=== PATIENT | female | born 1975 | race Caucasian/White ===

== ENCOUNTER 2020-02-22 12:31 | Outpatient (CLI) | payer BC, SELFPAY ==
--- NOTE | ~2020-02-22 | XR_ITS ---
XR knee RT min 4V DATE: 02/22/2020 12:56 INDICATION: Inferopatellar pain. No injury. TECHNIQUE: 4 views COMPARISON: None FINDINGS: There is mild to moderate osteoarthritis at the medial compartment, with mild loss of joint space height, mild periarticular spurring of the tibia. There is slight periarticular spurring at th e lateral compartment. No fracture or dislocation or joint effusion. No periosteal reaction or bone destruction. No radiopaq ue intra-articular loose body or chondrocalcinosis. IMPRESSION: Osteoarthritis Reviewed, dictated and finalized at location B. IMPRESSION: Osteoarthritis
== END 2020-02-22 12:32 | disposition home or self-care (01) ==
PROVIDERS: PCP Internal Medicine; Visit Provider Internal Medicine
DX: M25.569 Pain in unspecified knee (principal); M17.11 Unilateral primary osteoarthritis, right knee
CPT/HCPCS: 73564

== ENCOUNTER 2020-06-28 17:41 | Outpatient (CLI) | payer BC, SELFPAY ==
[2020-06-28 18:10] LABS: Alanine Aminotransferase 22 U/L (4-35); Albumin Level 4.4 g/dL (3.5-5.1); Alkaline Phosphatase 100 U/L (38-126); Anion Gap 10 mmol/L (8-16); Aspartate Amino Transferase 27 U/L (14-36); Bilirubin,Total 0.6 mg/dL (0.2-1.3); Blood Urea Nitrogen 17 mg/dL (7-17); Calcium 9.8 mg/dL (8.4-10.2); Carbon Dioxide 24 mmol/L (22-30); Chloride 102 mmol/L (98-107); Estimated Glomerular Filt Rate > 60; Glucose 110 mg/dL (65-105); Potassium 4.6 mmol/L (3.4-5.0); Sodium 136 mmol/L (137-145)
[2020-06-28 18:19] LABS: NT Pro B Type Natriuretic Pept 40 PG/ML (5-100)
[2020-06-28 18:46] LABS: Iron 71 ug/dL (37-170)
[2020-06-28 19:02] LABS: Hematocrit 40.6 % (37.0-47.0); Hemoglobin 13.8 g/dL (12.0-15.0); Mean Corpuscular Hemoglobin 33.7 pg (26-34); Mean Corpuscular Volume 99.3 fl (80-100); Mean Platelet Volume 10.6 fl (7.4-10.4); Platelet Count Result 336 k/mm3 (150-375); Red Blood Count 4.09 M/mm3 (4.2-5.4); Red Cell Distribution Width 13.2 % (11.5-14.5); White Blood Count 15.5 K/mm3 (4.5-10.0)
[2020-06-28 19:04] LABS: Percent Iron Saturation 16 % (20-50)
== END 2020-06-28 17:42 | disposition home or self-care (01) ==
LOC: ANHLAB 17:43
PROVIDERS: PCP Internal Medicine; Visit Provider Internal Medicine Cardiovascular Disease
DX: D50.0 Iron deficiency anemia secondary to blood loss (chronic) (principal); I50.32 Chronic diastolic (congestive) heart failure; Z86.79 Personal history of other diseases of the circulatory system
CPT/HCPCS: 36415; 80053; 83540; 83550; 83880; 84443; 85027

== ENCOUNTER 2020-07-26 00:12 | Outpatient (CLI) | payer BC, SELFPAY ==
[2020-07-27 16:05] LABS: SARS-CoV-2 RNA PCR Negative
== END 2020-07-26 00:13 | disposition home or self-care (01) ==
LOC: ANHCOVIDDT 00:12
PROVIDERS: PCP Internal Medicine; Visit Provider Internal Medicine Critical Care Medicine
DX: R68.89 Other general symptoms and signs (principal); Z20.828 Contact with and (suspected) exposure to other viral communicable diseases
CPT/HCPCS: 87635; C9803; U0003

== ENCOUNTER 2020-07-28 08:11 | Outpatient (CLI) | payer BC, SELFPAY ==
--- NOTE | 2020-09-13 10:58 | WPDSLEEPSTUD ---
Sleep Study Date of Study: 07/28/20 Ordering Provider: Nichole Maier MD; Lavell Dhaliwal MD is primary care physicain Interpreting Physician: Nichole Maier MD Sleep Study Type: BiPAP Titration Height: 1.7 m Weight: 161.479 kg Body Mass Index: 55.7 Neck Circumference: 40.64 cm [place]: 12 Reason for Sleep Study Nocturnal polysomnogram on 03/15/2020 at [facility] with an AHI 18.9 and a minimum saturation 91% Sleep History Aide Quintana is a 45 year old female with a complex medical history. Her baseline NPSG showed moderate obstructive sleep apnea, and she is here for a titration. 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 She had severe CHF, large amount of fluid retention, was not able to return to normal activity. She was followed by [facility], now is seen by [facility]. She has had 2 sleep studies in the past. She was started on APAP which did not help her, and she was never able to tolerate it. She is really frustrated because she ended up paying for a CPAP machine and really was not even able to benefit. This started back around 2018. She has had poor sleep since childhood, worse over the last 10 years. She chokes and coughs while sleeping. She has fatigue, nightmares, and falls asleep easily during the day. Her boyfriend notes that she sleep talks if she is extremely tired before sleep. She snores loudly, has a dry mouth at night, keeps water by the bed. Her sleep schedule is not a set routine; she has a variable bedtime but she uses amitriptyline to help her fall asleep and she normally is going to sleep around 9:30 p.m. Sometime she does not fall asleep as quickly as she would like. She tosses and turns at night, has body pains during sleep associated with fibromyalgia. She wakes to go to the bathroom. She wakes in the am between 6:00 & 7:00 a.m. not feeling refreshed. She urinates on average 3 times at night. She lives with her 80-year-old parents who are not in good health and she sleeps very lightly, waking at night to help them if they need anything. She takes ropinirole for limb movements and restless leg symptoms, and this helps significantly. She has fibromyalgia, chronic pain and her activity is limited during the daytime. She is on immunotherapy for allergies, currently back to having 1 injection per week. She had her tonsils removed March 22, 2020 for recurrent infections. She does not have vivid dreamlike scenes upon waking or falling asleep. She does not fall asleep involuntarily during the day. She says her sleep overall has been poor since the age of 7. She has muscle spasms that wake her up at night. At times her muscle cramps of caused her to jerk at night and this is looks like seizure activity. She tries to avoid naps but after 3 or 4 nights of poor sleep sometimes she will take a nap lasting anywhere from an hour to 5 hours. She does not feel good after taking a nap obviously. She has had episodes of choking at night witnessed by others. She sleeps better in her adjustable bed, cannot sleep supine. She uses several pillows to help sleep. She does not sleep supine at all. She has sinus issues, this is worse with weather changes. she sometimes takes naps. A short nap is not refreshing. She is drowsy in the morning for 1 hour. She constantly sweats excessively at night. She frequently notices irregular heartbeat at night. She occasionally falls asleep during the day, occasionally involuntarily but denies falling asleep while driving the car. She does not fall asleep during physical effort. She does not have loss of muscle tone with strong emotion. She occasionally has daytime difficulties due to excessive sleepiness. She does not feel paralyzed on waking or falling asleep. She frequently has vivid dreamlike scenes both upon awakening or falling asleep. She is frequently fearful of falling as
[2020-09-13 11:32] VITALS: BMI 55.7
== END 2020-07-28 08:12 | disposition home or self-care (01) ==
LOC: ANHCSM 08:12
PROVIDERS: PCP Internal Medicine; Visit Provider Internal Medicine Critical Care Medicine
DX: G47.33 Obstructive sleep apnea (adult) (pediatric) (principal)
CPT/HCPCS: 95811

== ENCOUNTER 2020-10-06 14:01 | Outpatient (CLI) | payer BC, SELFPAY ==
[2020-10-06 14:54] LABS: Anion Gap 9 mmol/L (8-16); Blood Urea Nitrogen 16 mg/dL (7-17); Calcium 9.2 mg/dL (8.4-10.2); Carbon Dioxide 29 mmol/L (22-30); Chloride 98 mmol/L (98-107); Estimated Glomerular Filt Rate > 60; Glucose 110 mg/dL (65-105); Potassium 4.3 mmol/L (3.4-5.0); Sodium 136 mmol/L (137-145)
== END 2020-10-06 14:02 | disposition home or self-care (01) ==
PROVIDERS: PCP Internal Medicine; Visit Provider Internal Medicine Cardiovascular Disease
DX: R60.0 Localized edema (principal); Z79.899 Other long term (current) drug therapy
CPT/HCPCS: 36415; 80048

== ENCOUNTER → 2020-12-28 16:40 | Outpatient (CLI) | payer BC, SELFPAY ==
--- NOTE | ~2020-12-28 | XR_ITS ---
XR chest 2V DATE: 12/28/2020 17:13 INDICATION: Cough TECHNIQUE: PA and lateral views COMPARISON: 12/14/2018 2 view chest FINDINGS: Normal heart size. No hilar or mediastinal enlargement. No pulmonary infiltrate or consolid ation, pleural effusion or pulmonary vascular congestion or pneumothorax. IMPRESSION: No active cardiopulmonary disease Reviewed, dictated and finalized at location A.
== END ==
PROVIDERS: Visit Provider Family Medicine
DX: R05 Cough (principal)
CPT/HCPCS: 71046

== ENCOUNTER 2021-10-11 00:21 | Day surgery (SDC) | payer BC, SELFPAY ==
[2021-09-27 15:09] VITALS: BMI 53.8
--- NOTE | 2021-10-10 18:47 | PM.HPGS ---
History of Present Illness History of Present Illness Consent: Risks, benefits, and alternatives have been discussed and questions answered. Patient agrees to proceed with procedure. Chief complaint: epigastric pain, diarrhea Narrative: Aide Quintana is a 46 year old female who has had a pain in the left upper quadrant which is a stabbing sensation particularly when eating beginning about 6 months ago. When her primary care physician palpated the area it was quite tender. She recalls that she had a CT scan last year for those same symptoms-- this was done at [facility] in [place] and he was told that there was nothing seen except for ovarian cysts. She does have polycystic ovary syndrome. The patient has had diarrhea all of her life. She states that I saw her about 25 years ago for that. Is not clear whether not she had a colonoscopy. She has been overweight for quite a while has had no recent weight loss. Another issue she has is constant nausea beginning 1 and half years ago. Someone told her she may have H pylori bacteria. 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 She states that her neurologist the stomach and sent her to her neuromuscular specialist who has done a biopsy of her muscle. That is pending. She is thought to have some sort of autoimmune disease. He is treating her for muscle spasms. Besides starting muscle relaxants and naltrexone, they are weaning down her amitriptyline dose. She had been on 150 mg and was decreased to 75. This seems have cause a flare-up of some her symptoms including her gastrointestinal issues. Just recently the dose was increased back to 100 mg per day . She has been on omeprazole 40 mg per day. She denies severe heartburn or dysphagia. Review of Systems Review of Systems: All systems reviewed & are unremarkable except as noted in HPI and below PMFSH Past Medical History Medical History Allergies CHF (congestive heart failure) Chlamydia 2017 Congestive heart failure Essential (primary) hypertension Fibromyalgia GERD (gastroesophageal reflux disease) Hypertension Hypertension IBS (irritable bowel syndrome) IBS (irritable bowel syndrome) Moderate obstructive sleep apnea (~02/2020) Night sweats No pertinent family history Primary osteoarthritis of left knee Vaginal odor Vitamin D deficiency, unspecified Surgical History Surgical History Hx of cholecystectomy S/P tonsillectomy Family History Family History Unknown Adopted Social History Social History Smoking packs per day: 1 Smoking cigarettes per day: 20.0 Years smoked: 20 Smoking pack-years: 20.00 Smoking status: Current every day smoker Tobacco type: cigarettes Second hand tobacco smoke exposure: Yes Alcohol intake: never Substance use: never Substance use type: does not use Living arrangements: with roommate(s) Additional living arrangements comments: [facility] Gender identity (if verbalized by the patient): Female Spiritual care concerns: No Agree to blood products: Yes Meds Home Medications and Allergies Home Medications Medication Instructions Recorded Confirmed Type benazepril 20 mg PO HS 06/23/19 09/27/21 History spironolactone 25 mg PO DAILY 06/23/19 09/27/21 History fluticasone propionate [Flonase 1 spray NASAL Q12H 10 Days #15.8 ml 08/05/19 09/27/21 Rx Allergy Relief] Saccharomyces boulardii 250 mg 250 mg PO BID 09/28/19 09/27/21 History capsule multivitamin 1 cap PO DAILY 09/28/19 09/27/21 History azelastine 205.5 mcg (0.15 %) 2 spray NASAL DAILY 01/26/20 09/27/21 History nasal spray cetirizine 10 mg capsule 10 mg PO DAILY 01/26/20 09/27/21 History
--- NOTE | 2021-10-11 09:00 | SUR.PREOP ---
Pt unable to provide urine sample for HCG testing after multiple attempts. MD Wilkins notified. Pt states there is no possibility of . pt states she is on BC and has not had menstrual cycle in over a year. MD Wilkins gave verbal order to cancel test.
[2021-10-11 09:04] VITALS: BP 145/86; PULSE 93; RESP 22; TEMP 37.1; O2SAT 95
[2021-10-11] MEDS: LACTATED RINGERS 1,000 ML 150 ML IV CONT (09:15)
--- NOTE | 2021-10-11 09:36 | WPDANESEPPF ---
Anes - Initial Pre Proc Eval Procedure: Operation Date: 10/11/21 10:00 Proposed Procedures p Esophagogastroduodenoscopy & Colonoscopy - Sachin Virk MD Date/Time: 10/11/21 09:36 Surgeon: Sachin Virk MD Pre Op Diagnosis: epigastric pain, diarrhea Patient Data Age: 46 Gender: F Height: 1.7 m Weight: 152.7 kg Last Vital Signs Temp 37.1 C 10/11/21 09:04 Pulse 93 10/11/21 09:04 Resp 22 H 10/11/21 09:04 BP 145/86 H 10/11/21 09:04 Pulse Ox 95 10/11/21 09:04 Allergies Allergy/AdvReac Type Severity Reaction Status Date / Time milnacipran [From Savella] AdvReac Vomiting Verified 10/11/21 09:03 pregabalin [From Lyrica] AdvReac Depression Verified 10/11/21 09:03 Home Medications Medication Instructions Recorded Confirmed Type benazepril 20 mg PO HS 06/23/19 09/27/21 History spironolactone 25 mg PO DAILY 06/23/19 09/27/21 History fluticasone propionate [Flonase 1 spray NASAL Q12H 10 Days #15.8 ml 08/05/19 09/27/21 Rx Allergy Relief] Saccharomyces boulardii 250 mg 250 mg PO BID 09/28/19 09/27/21 History capsule multivitamin 1 cap PO DAILY 09/28/19 09/27/21 History azelastine 205.5 mcg (0.15 %) 2 spray NASAL DAILY 01/26/20 09/27/21 History nasal spray cetirizine 10 mg capsule 10 mg PO DAILY 01/26/20 09/27/21 History cromolyn 4 % eye drops 1 drop EACH EYE QID 01/26/20 09/27/21 History doxycycline monohydrate 40 mg 40 mg PO DAILY 01/26/20 09/27/21 History capsule,immediate - delay release epinephrine 0.3 mg/0.3 mL 0.3 mg IM ONCE 01/26/20 09/27/21 History injection, auto-injector metronidazole 1 % topical cream 1 applic TOPICAL DAILY 01/26/20 09/27/21 History montelukast 10 mg tablet 10 mg PO DAILY 01/26/20 09/27/21 History potassium 99 mg tablet mg PO BID tablet 01/26/20 09/25/21 History bumetanide 2 mg tablet 4 mg PO DAILY tablet 08/03/20 09/27/21 History oxcarbazepine 150 mg tablet 450 mg PO BID tablet 12/14/20 09/27/21 History norethindrone (contraceptive) 0.35 0.35 mg PO DAILY #84 tablet 04/26/21 09/27/21 Rx mg tablet omega-3 fatty acids 1,000 mg 1,000 mg PO DAILY 04/26/21 09/27/21 History capsule diclofenac 75 mg-misoprostol 200 1 tablet PO BID 07/06/21 09/27/21 History mcg tablet,immediate,delayed release tizanidine 2 mg capsule 2 mg PO TID PRN 07/06/21 09/27/21 History ergocalciferol (vitamin D2) 1,250 See Rx Instructions .ROUTE 07/25/21 09/27/21 Rx mcg (50,000 unit) capsule .COMPLEX #36 cap cholestyramine (with sugar) 4 gram 4 g PO DAILY #30 ea 08/07/21 09/27/21 Rx powder for susp in a packet amitriptyline 100 mg tablet 100 mg PO QHS #90 tablet 08/27/21 09/27/21 Rx ropinirole 1 mg tablet See Rx Instructions .ROUTE 08/31/21 09/27/21 Rx .COMPLEX #90 tablet carvedilol 25 mg tablet 37.5 mg PO Q12H tablet 09/21/21 09/27/21 History omeprazole 40 mg capsule,delayed See Rx Instructions .ROUTE 09/26/21 09/27/21 Rx release .COMPLEX #90 cap Patient hx anesthesia problems: none Family hx anesthesia problems: none Results Review: All pre-operative results and documents have been reviewed as part of the pre-operative evaluation. [facility] Past Medical History Medical History Allergies CHF (congestive heart failure) Chlamydia 2017 Congestive heart failure Essential (primary) hypertension Fibromyalgia GERD (gastroesophageal reflux disease) Hypertension Hypertension IBS (irritable bowel syndrome) IBS (irritable bowel syndrome) Moderate obstructive sleep apnea (~02/2020) Night sweats No pertinent family history Primary osteoarthritis of left knee Vaginal odor Vitamin D deficiency, unspecified Surgical History Surgical History Hx of cholecystectomy S/P tonsillectomy Family History Family History Unknown Adopted Social History Social History (Reviewed 10/11/21 @ 09:37
[2021-10-11] MEDS: BENZOCAINE (*SP) 60 ML SPRAY CAN (HURRICAINE) 1 SPRAY MUCOUS MEM (10:06)
--- NOTE | 2021-10-11 10:31 | SUR.OPER ---
EGD START: 1010; END 1013. COLONOSCOPY START: 1021; END: 1029.
[2021-10-11 10:34] VITALS: BP 147/71; PULSE 94; RESP 24; O2SAT 100
[2021-10-11 10:44] VITALS: BP 160/90; PULSE 90; RESP 25; O2SAT 100
[2021-10-11 10:45] VITALS: BP 160/90; PULSE 90; RESP 25; O2SAT 100
[2021-10-11 10:54] VITALS: BP 164/91; PULSE 84; RESP 27; O2SAT 100
== END 2021-10-11 11:10 | disposition home or self-care (01) ==
PROVIDERS: PCP Family Medicine; Visit Provider Internal Medicine Gastroenterology
PROC: 0DJ08ZZ Inspection of Upper Intestinal Tract, Via Natural or Artificial Opening Endoscopic (ICD-10-PCS; CPT 43235; principal; 2021-10-11 10:00)
DX: R19.7 Diarrhea, unspecified (principal); K21.9 Gastro-esophageal reflux disease without esophagitis; K29.50 Unspecified chronic gastritis without bleeding; I11.0 Hypertensive heart disease with heart failure; I50.9 Heart failure, unspecified; M79.7 Fibromyalgia; G47.33 Obstructive sleep apnea (adult) (pediatric); E55.9 Vitamin D deficiency, unspecified; E28.2 Polycystic ovarian syndrome; F17.210 Nicotine dependence, cigarettes, uncomplicated; E66.01 Morbid (severe) obesity due to excess calories; Z68.43 Body mass index [BMI] 50.0-59.9, adult
CPT/HCPCS: 45380; 43239; 88305; J2704; J7120

== ENCOUNTER 2021-12-06 12:01 | Outpatient (CLI) | payer BC, SELFPAY ==
[2021-12-06 12:38] LABS: Alanine Aminotransferase 25 U/L (4-35); Albumin Level 4.6 g/dL (3.5-5.1); Alkaline Phosphatase 85 U/L (38-126); Anion Gap 10 mmol/L (8-16); Aspartate Amino Transferase 57 U/L (14-36); Bilirubin,Total 0.8 mg/dL (0.2-1.3); Blood Urea Nitrogen 14 mg/dL (7-17); Calcium 8.6 mg/dL (8.4-10.2); Carbon Dioxide 18 mmol/L (22-30); Chloride 105 mmol/L (98-107); Cholesterol 234 mg/dL (0-200); Estimated Glomerular Filt Rate > 60; Glucose 178 mg/dL (65-110); HDL Direct 38 mg/dL; Potassium 5.1 mmol/L (3.4-5.0); Sodium 133 mmol/L (137-145); Triglycerides 425 mg/dL (<150)
[2021-12-06 12:49] LABS: LDL Cholesterol Direct 132 mg/dL
[2021-12-06 20:12] LABS: NT Pro B Type Natriuretic Pept 43 pg/mL (5-100)
== END 2021-12-06 12:02 | disposition home or self-care (01) ==
LOC: ANHLAB 12:03
PROVIDERS: PCP Family Medicine; Visit Provider Internal Medicine Cardiovascular Disease
DX: E78.2 Mixed hyperlipidemia (principal); E11.69 Type 2 diabetes mellitus with other specified complication
CPT/HCPCS: 36415; 80053; 80061; 83880; 84443

== ENCOUNTER 2022-03-04 14:37 | Outpatient (CLI) | payer BC, SELFPAY ==
[2022-03-04 15:24] LABS: Alanine Aminotransferase 23 U/L (6-35); Albumin Level 4.6 g/dL (3.5-5.1); Alkaline Phosphatase 87 U/L (38-126); Anion Gap 10 mmol/L (8-16); Aspartate Amino Transferase 26 U/L (14-36); Bilirubin,Total 0.5 mg/dL (0.2-1.3); Blood Urea Nitrogen 13 mg/dL (7-17); Carbon Dioxide 23 mmol/L (22-30); Chloride 101 mmol/L (98-107); Cholesterol 263 mg/dL (0-200); Estimated Glomerular Filt Rate > 60; Glucose 160 mg/dL (65-110); HDL Direct 54 mg/dL; Potassium 4.3 mmol/L (3.4-5.0); Sodium 134 mmol/L (137-145); Triglycerides 337 mg/dL (<150)
[2022-03-04 15:35] LABS: LDL Cholesterol Direct 158 mg/dL
== END 2022-03-04 14:38 | disposition home or self-care (01) ==
LOC: ANHLAB 14:40
PROVIDERS: PCP Family Medicine; Visit Provider Internal Medicine Cardiovascular Disease
DX: E78.1 Pure hyperglyceridemia (principal)
CPT/HCPCS: 36415; 80053; 80061

== ENCOUNTER 2022-04-20 08:33 | Emergency (ER) | payer BC, SELFPAY ==
[2022-04-20 08:48] VITALS: BP 158/87; PULSE 99; RESP 16; TEMP 37.8; O2SAT 99
--- NOTE | 2022-04-20 09:13 | ED.GENADULT ---
HPI - General Adult General Chief complaint: Upper Respiratory Infection Stated complaint: Ear and throat pain, runny nose Source: patient Mode of arrival: ambulatory Limitations: no limitations History of Present Illness HPI narrative: Patient presents for evaluation of sick symptoms. She indicates 3 weeks ago she developed sinus congestion. She now has thick yellow discharge from her nares. She reports sore throat, fever and fullness in ear bilaterally. No chills, nausea, vomiting, cough. She was exposed to COVID about one week ago. No formal diagnosis of COVID in past although she believes she had COVID at the start of the pandemic. She has received two doses of COVID vaccine and one booster. She is a former smoker, with quit date in December of this year. She states she has had similar symptoms in the past with sinusitis. Amoxicillin and augmentin have not worked historically. She has had favorable response to azithromycin in past. She took a home COVID test today which was negative. She has an underlying hx of DM but states home BS are normal. Related Data Home Medications Medication Instructions Recorded Confirmed amitriptyline 100 mg tablet mg 04/20/22 aprepitant 40 mg capsule mg 04/20/22 azelastine 137 mcg (0.1 %) nasal intranasal 04/20/22 spray aerosol benazepril 20 mg tablet mg 04/20/22 bumetanide 2 mg tablet mg 04/20/22 cholestyramine (with sugar) 4 gram ea 04/20/22 powder for susp in a packet diclofenac 75 mg-misoprostol 200 tablet PO 04/20/22 mcg tablet,immediate,delayed release ergocalciferol (vitamin D2) 1,250 04/20/22 mcg (50,000 unit) capsule fenofibrate nanocrystallized 145 mg PO 04/20/22 mg tablet lancets 33 gauge (Micro Thin 04/20/22 04/20/22 Lancets) metformin 500 mg tablet,extended mg PO 04/20/22 release 24 hr montelukast 10 mg tablet mg 04/20/22 norethindrone (contraceptive) 0.35 mg 04/20/22 mg tablet omeprazole 40 mg capsule,delayed mg 04/20/22 release spironolactone 25 mg tablet mg 04/20/22 tizanidine 2 mg tablet mg 04/20/22 Allergies Allergy/AdvReac Type Severity Reaction Status Date / Time pregabalin [From Lyrica] Allergy Rash Verified 04/20/22 08:50 milnacipran [From Savella] AdvReac Rash Verified 04/20/22 08:51 Review of Systems Review of Systems: CONSTITUTIONAL: Reports fever. Denies chills, or sweats. EYES: Denies visual changes, redness, or discharge. ENT: Reports sore throat, sinus congestion, thick yellow nasal drainage and bilateral ear fullness. CARDIOVASCULAR: Denies chest pain, palpitations, or edema. RESPIRATORY: Denies cough or dyspnea. GASTROINTESTINAL: Denies abdominal pain, nausea, vomiting, or diarrhea. GENITOURINARY: Denies dysuria or hematuria. SKIN: Denies rash or itching. MUSCULOSKELETAL: Denies back pain, joint pain, or myalgia. NEUROLOGIC: Denies headache, numbness, dizziness, or weakness. PSYCHIATRIC: Denies anxiety or depression. [facility] Past Medical History Medical History (Updated 04/20/22 @ 09:27 by TRINITY AndinoP, ) Diabetes Hyperlipidemia Hypertension Surgical History Surgical History No pertinent past surgical history Family History Family History Mother Family history non-contributory Social History Social History Smoking status: Former smoker Substance use: never Additional living arrangements comments: Lives with boyfriend Gender identity (if verbalized by the patient): Female Spiritual care concerns: No Exam Narrative: GENERAL: Well-appearing, well-nourished, and in no acute distress. HEAD: Normocephalic, atraumatic. EYES: PERRLA and EOMI. ENT: Nares clear, no rhinorrhea or epistaxis. Mucous membranes moist. Oropharynx without tonsillar hypertrophy exudate or other lesions. Bilateral
== END 2022-04-20 09:05 | disposition home or self-care (01) ==
PROVIDERS: Emergency Provider Nurse Practitioner; PCP Family Medicine Sports Medicine
DX: J32.9 Chronic sinusitis, unspecified (principal); E11.9 Type 2 diabetes mellitus without complications; E78.5 Hyperlipidemia, unspecified; I10 Essential (primary) hypertension; Z87.891 Personal history of nicotine dependence
CPT/HCPCS: 99213; G0463

== ENCOUNTER 2022-07-23 14:42 | Outpatient (CLI) | payer BC, SELFPAY ==
--- NOTE | ~2022-07-23 | US_ITS ---
EXAMINATION: US pelvic complete w TV DATE: 07/23/2022 16:04 INDICATION: Excessive and frequent menstruation. Comparison:Ultrasound dated 03/13/2009 TECHNIQUE: Multiple transabdominal and endovaginal sonographic images of the pelvis performed. FINDINGS: The uterus measures 8.3 x 4.6 x 4.3 cm. There is a uterine mass measuring 3.2 x 2.3 x 2.3 c m, consistent with uterine fibroid which appears to be intramural. The endometrial complex measures 1 1 mm. The right ovary measures 3.2 x 2.2 x 1.9 cm and the left ovary measures 2.8 x 1.8 x 2.8 cm. There is a left adnexal cyst, likely exophytic from the ovary. There are small follicles in each ovary. Normal doppler signal in both ovaries. There is no free fluid in the pelvis. There are no abnormal masses seen on either side. IMPRESSION: 1. Intramural uterine fibroid measuring 3.2 cm. 2: Follicular changes are present in both ovaries. No significant ovarian or adnexal mass. Reviewed, dictated and finalized at location A. PL [employer] DEV[employer] IMPRESSION: 1. Intramural uterine fibroid measuring 3.2 cm. 2: Follicular changes are present in both ovaries. No significant ovarian or a dnexal mass.
== END 2022-07-23 14:43 | disposition home or self-care (01) ==
PROVIDERS: PCP Family Medicine Sports Medicine; Visit Provider Student in an Organized Health Care Education/Training Program
DX: D25.1 Intramural leiomyoma of uterus (principal); N92.0 Excessive and frequent menstruation with regular cycle
CPT/HCPCS: 76830; 76856

== ENCOUNTER 2022-07-25 08:44 | Outpatient (CLI) | payer BC, SELFPAY ==
--- NOTE | 2022-08-22 15:15 | WPDSLEEPSTUD ---
Sleep Study Date of Study: 07/25/22 Ordering Provider: Nichole Maier MD Interpreting Physician: Nichole Maier MD Sleep Study Type: Polysomnogram Height: 1.7 m Weight: 122.47 kg Body Mass Index: 42.3 Neck Circumference (inches): 13.5 [place]: 2 Reason for Sleep Study New atrial fibrillation and history of obstructive sleep apnea with difficulty using PAP therapy; has had a 90 lb weight loss and needs re-evaluation. BMI was 55.8 before gastric bypass, was 46.2 in June at her office visit, now is 42.3, lower. *?06/22/2020? BiPAP titration: optimal pressure 06/24, BMI was 55.8, she had problems with claustrophobia and tolerating her mask.? * 03/15/2020 basic nocturnal polysomnogram @ [place], [place] showing 311 minutes of sleep, sleep onset 1.6 minutes, sleep efficiency 74.2% and only 4 minutes of REM.? She slept supine 34.6% of the time.? Her arousal index was 43.8.? This tested did not give the breakdown between obstructive and central apneas. The?AHI was 18.9,?equally split between supine and nonsupine sleep.? The?REM AHI was 30.??Lowest?desaturation?was?91%.? She was tachycardic with an average heart rate of 101. Sleep History Aide Quintana is a 47 year-old female with complex medical problems, cardiomyopathy since age 27 after Coxsackie viral infection with severe congestive heart failure. She has a history of 3 sleep studies in the past, was on APAP which did not help her and she was never able to tolerate it. This initially occurred in 2018. She has been told by others that she stops breathing during sleep. She wakes up without feeling refreshed. She has a difficult time falling asleep and staying asleep. In the past she has used BiPAP, she has had a 100 lb weight loss with gastric bypass surgery since her last sleep study 2 years ago. She constantly awakens from sleep feeling short of breath. She occasionally awakens at night with heartburn, belching or coughing. She rarely snores. She frequently has trouble sleeping with a cold. She occasionally wakes up gasping for breath at night. She occasionally has breathing problems at night observed by others. She does not sweat excessively at night. She rarely notices her heart pounding or beating irregularly at night. She rarely falls asleep during the day, never involuntarily. She does not fall asleep while driving. She does not have loss of muscle tone with strong emotion. She does not have daytime difficulties due to excessive sleepiness. She does not feel paralyzed on waking or falling asleep. She does not have vivid dreamlike scenes on waking or falling asleep. She does not feel afraid to go to sleep. She does not have nightmares. She rarely remembers her dreams. She rarely has racing thoughts. She rarely feels sad depressed or anxious. She rarely has muscular tension. She rarely notices parts of her body jerking. She rarely kicks at night and rarely has crawling or aching feelings in her legs at night. She rarely has any kind of leg pain at night. She rarely has morning jaw pain. She does rarely grinds her teeth at night. She occasionally is bothered by pain during the day and occasionally awakened by pain at night. She occasionally wakes up feeling stiff in the morning with sore achy muscles and pain in the neck and spine. She has headaches, fatigue and palpitations. She has left restless legs and takes ropinirole 1 mg at night. She has had poor sleep since age 7, worse over the last 12 years. She was new diagnosed with diagnosed with small fiber neuropathy. She wakes to go to the bathroom at least twice at night. She has used immunotherapy for allergies. Tonsils removed March 22, 2020 for recurrent infections. She cannot sleep supine at all. Normal bedtime is 10:30 p.m., taking 2 hours to fall asleep typically waking 6 times during the night. It may take her 30 minutes or up to an hour to fall asleep again. Her normal wake mary
[2022-08-22 16:09] VITALS: BMI 42.3
== END 2022-07-26 06:20 | disposition home or self-care (01) ==
LOC: ANHCSM 08:49
PROVIDERS: PCP Family Medicine Sports Medicine; Visit Provider Internal Medicine Critical Care Medicine
DX: G47.19 Other hypersomnia (principal); R06.83 Snoring; I48.91 Unspecified atrial fibrillation; I50.9 Heart failure, unspecified; E11.9 Type 2 diabetes mellitus without complications; E78.5 Hyperlipidemia, unspecified; K21.9 Gastro-esophageal reflux disease without esophagitis; I11.0 Hypertensive heart disease with heart failure; E55.9 Vitamin D deficiency, unspecified; Z87.891 Personal history of nicotine dependence
CPT/HCPCS: 95810